=== PATIENT | female | born 1955 | race Caucasian/White ===

== ENCOUNTER 2019-12-22 10:03 | Outpatient (CLI) | payer BC, OTHER ==
--- NOTE | 2019-12-30 10:54 | Mammography Report ---
BILATERAL DIGITAL SCREENING MAMMOGRAM 3D/2D: 12/22/2019 CLINICAL: Routine screening. Routine screening. No prior exams were available for comparison. There are scattered fibroglandular elements in both breasts. There is possible architectural distortion in the right breast anterior depth medial region seen on t he craniocaudal view only. There also is a mass with an obscured and circumscribed margin in the right breast central to the nip ple anterior depth. No other significant masses, calcifications, or other findings are seen in either breast. IMPRESSION: INCOMPLETE: NEEDS ADDITIONAL IMAGING EVALUATION 1) The possible architectural distortion in the right breast anterior depth medial region seen on the craniocaudal view only is indeterminate. Additional views with possible ultrasound are recommended. 2) The mass in the right breast central to the nipple anterior depth resembles a cyst and is indeterm inate. Additional views with possible ultrasound are recommended. This exam was interpreted at Station ID: [id number]. NOTE: For mammograms, a report in lay terms will be sent to the patient. Approximately 15% of breast malignancies will not be visualized mammographically. In the management of a palpable breast mass, a negative mammogram must not discourage biopsy of a clinically suspicious lesion. Electronically Signed By: Ryley Oconnor M.D. slc/:12/30/2019 08:52:18 ACR BI-RADS Category 0: Incomplete 3340F PARENCHYMAL PATTERN: (A) - The breast(s) demonstrate(s) scattered fibroglandular densities. BI-RADS CATEGORY: (0) - 0 Mammo and [place] [id number] Immediate follow-up LATERALITY: (B)
== END 2019-12-22 10:04 | disposition home or self-care (01) ==
LOC: DI 10:03
DX: Z12.31 Encounter for screening mammogram for malignant neoplasm of breast (principal); N63.0 Unspecified lump in unspecified breast
CPT/HCPCS: 77063; 77067

== ENCOUNTER 2020-02-01 09:23 | Outpatient (CLI) | payer BC ==
--- NOTE | 2020-02-02 09:34 | Ultrasound Report ---
LIMITED ULTRASOUND OF RIGHT BREAST: 02/01/2020 CLINICAL: Patient returns for additional imaging over a suspected mass in the right breast. Comparison is made to exams dated: 02/01/2020 mammogram, 12/22/2019 mammogram - [facility], 10/07/2018 mammogram, 06/21/2016 mammogram, 02/10/2015 mammogram, and 12/30/2013 mammogram - [facility]. Color flow and real-time ultrasound of the right breast 7 o'clock, and retroareolar regions were perf ormed. Donovan scale images of the real-time examination were reviewed. There is a benign 0.6 cm x 0.6 cm x 0.5 cm round cyst in the right breast at 7 o'clock in the retroar eolar region 1 cm from the nipple. This round cyst is anechoic with posterior acoustic enhancement. Color flow imaging demonstrates that there is no vascularity present. Adjacent simple cyst measuring 0.2 cm. IMPRESSION: BENIGN There is no sonographic evidence of malignancy. The 0.6 cm round cyst in the right breast is consistent with a simple cyst and is benign. A 1 year screening mammogram is recommended. Exam findings conveyed to the patient. This exam was interpreted at Station ID: [id number]. Electronically Signed By: Ryley Oconnor M.D. slc/:02/01/2020 11:05:01 Ultrasound BI-RADS: 2 Benign BI-RADS CATEGORY: (2) - 2 RECOMMENDATION: (ANNUAL) - Recommend routine annual screening mammography. [id number] 1 year screening LATERALITY: (B)
--- NOTE | 2020-02-02 09:34 | Mammography Report ---
UNILATERAL RIGHT DIGITAL DIAGNOSTIC MAMMOGRAM 3D/2D: 02/01/2020 CLINICAL: Patient returns today to evaluate a density in the right breast. Comparison is made to exams dated: 12/22/2019 mammogram - [facility], 10/07/2018 mamm ogram, 06/21/2016 mammogram, 02/10/2015 mammogram, and 12/30/2013 mammogram - [facility]. There are scattered fibroglandular elements in right breast. There is a 0.6 cm mass with an obscured and circumscribed margin in the right breast central to the n ipple anterior depth. There also is a possible benign architectural distortion in the right breast anterior depth medial re gion seen on the craniocaudal view only. This is not seen in additional views. No other significant masses or calcifications are seen in the breast. IMPRESSION: INCOMPLETE: NEEDS ADDITIONAL IMAGING EVALUATION 1) The 0.6 cm mass in the right breast central to the nipple anterior depth resembles a cyst and is i ndeterminate. -A targeted ultrasound is recommended and will immediately follow. 2) Possible architectural distortion in the medial breast does not persist on additional views and is consistent with overlapping fibroglandular tissue and is benign. This exam was interpreted at Station ID: [id number]. NOTE: For mammograms, a report in lay terms will be sent to the patient. Approximately 15% of breast malignancies will not be visualized mammographically. In the management of a palpable breast mass, a negative mammogram must not discourage biopsy of a clinically suspicious lesion. Electronically Signed By: Ryley Oconnor M.D. slc/:02/01/2020 11:02:17 ACR BI-RADS Category 0: Incomplete 3340F PARENCHYMAL PATTERN: (A) - The breast(s) demonstrate(s) scattered fibroglandular densities. BI-RADS CATEGORY: (0) - 0 Ultrasound [id number] Immediate follow-up LATERALITY: (B)
== END 2020-02-01 09:24 | disposition home or self-care (01) ==
LOC: DI 09:23
PROVIDERS: ATTEND Family Medicine
DX: N60.01 Solitary cyst of right breast (principal)
CPT/HCPCS: 76642

== ENCOUNTER 2020-02-18 01:52 | Inpatient (IN) | payer BC ==
--- NOTE | 2020-02-18 02:18 | ED Physician Documentation ---
PD HPI ABD PAIN - Stated complaint Stated Complaint: ABD PX - Chief complaint Chief Complaint: Abd Pain - History obtained from History obtained from: Patient - History of Present Illness Timing - onset: Enter time (23:30), Today Timing - details: Abrupt onset Pain level max: 10 Pain level now: 10 Quality: Pain Location: All over / everywhere (predominantly RLQ) Radiation: Other (no radiation) Improved by: Other (no ameliorating factors) Worsened by: Other (no exacerbating factors) Associated symptoms: Nausea. No: Fever, Vomiting, Diarrhea, Constipation Recently seen: Not recently seen - Additional information Additional information: patient went to sleep approximately 9 PM in NAD, woke at approximately 11:30 PM with abdominal pain, diffuse but most pronounced in RLQ. Nausea but no vomiting. Denies h/o similar symptoms. Review of Systems Constitutional: reports: Reviewed and negative Eyes: reports: Reviewed and negative Ears: reports: Reviewed and negative Nose: reports: Reviewed and negative Throat: reports: Reviewed and negative Cardiac: reports: Reviewed and negative Respiratory: reports: Reviewed and negative GI: reports: Abdominal Pain, Nausea. denies: Vomiting, Constipation, Diarrhea : denies: Dysuria, Frequency Skin: denies: Rash Musculoskeletal: reports: Reviewed and negative Neurologic: reports: Reviewed and negative PD PAST MEDICAL HISTORY - Past Medical History Past Medical History: Yes Cardiovascular: High cholesterol - Past Surgical History Past Surgical History: Yes /[employer]: Other (patient says she had surgery to address ovarian cyst: this was approximately 40 years ago, cannot recall which side was involved) - Present Medications Home Medications: Ambulatory Orders Medication Instructions Recorded Confirmed Simvastatin 10 mg PO DAILY 02/18/20 02/18/20 - Allergies Allergies/Adverse Reactions: Allergies Allergy/AdvReac Type Severity Reaction Status Date / Time No Known Drug Allergies Allergy Verified 02/18/20 02:25 - Living Situation Living Arrangement: reports: At home - Social History Does the pt smoke?: No PD ED PE NORMAL - Vitals Vital signs reviewed: Yes - General General: Alert and oriented X 3, Well developed/nourished, Other (obvious painful discomfort) - HEENT HEENT: Moist mucous membranes - Neck Neck: Supple, no meningeal sign - Cardiac Cardiac: RRR, No murmur, No gallop, No rub - Respiratory Respiratory: No respiratory distress, Clear bilaterally - Abdomen Abdomen: Normal bowel sounds, Soft, Non distended - Back Back: No CVA TTP - Derm Derm: Normal color, Warm and dry, No rash - Extremities Extremities: No edema PD ED PE EXPANDED - Abdomen Abdomen: Tender to palpation (across lower abdomen, most pronounced in RLQ;). No: Rebound Results - Vitals Vitals: Vital Signs - 24 hr 02/18/20 02/18/20 02/18/20 01:55 04:00 05:15 Temperature 36.5 C Heart Rate 62 63 62 Respiratory 20 14 16 Rate Blood Pressure 163/87 H 129/72 169/85 H O2 Saturation 100 100 96 Oxygen O2 Source Room air - Labs Labs: Laboratory Tests 02/18/20 02/18/20 02/18/20 02:10 02:10 02:12 WBC 6.8 RBC 4.23 Hgb 12.6 Hct 39.6 MCV 93.6 MCH 29.8 MCHC 31.8 L RDW 12.9 Plt Count 241 MPV 9.6 Neut # (Auto) 4.7 Lymph # (Auto) 1.5 [place] # (Auto) 0.4 Eos # (Auto) 0.0 Baso # (Auto) 0.0 Absolute Nucleated RBC 0.00 Nucleated RBC % 0.0 Sodium 138 Potassium 3.6 Chloride 103 Carbon Dioxide 27 Anion Gap 8.0 BUN 15 Creatinine 0.8 Estimated GFR (MDRD) 73 L Glucose 133 H Calcium 8.9 Total Bilirubin 0.5 AST 21 ALT 20 Alkaline Phosphatase 50 Total Protein 6.9 Albumin 4.1 Globulin 2.8 Albumin/Globulin Ratio 1.5 Lipase 29 Urine Color YELLOW Urine Clarity HAZY Urine pH 6.0 Ur Specific [place] 1.025 Urine Protein NEGATIVE Urine Glucose (UA) NEGATIVE Urine Ketones TRACE Urine Occult Blood SMALL H Urine Nitrite NEGATIVE Urine Bilirubin NEGATIVE Urine Urobilinogen 0.2 (NORMAL) Ur Leukocyte Esterase NEGATIVE Urine RBC 6-10 H Urine WBC 0-3 Ur Squamous Epith Cells MANY Squamous H Urine Bacteria Moderate H Ur Microscopic Review INDICATED Urine Culture Comments NOT INDICATED - Rads (name of study) CT A/P Radiology: Prelim report reviewed, See rad report CXR Radiology: Prelim report reviewed, See rad report PD MEDICAL DECISION MAKING - ED course Complexity details: reviewed results, re-evaluated patient, considered differential, d/w patient ED course: patient had adequate symptom relief with 1mg IV dilaudid and 4mg IV zofran. Also given [address] demonstrates SBO. Her symptoms gradually returned, and she was given repeat doses of dilaudid and zofran. She had vomiting subsequent to the second dose of zofran. D/W Dr. Greco, recommends NGT placement and he will admit to [facility]. Departure - Departure Disposition: [facility] DC/Tae Clinical Impression: Small bowel obstruction Condition: Stable Discharge Date/Time: 02/18/20 07:08
[2020-02-18 02:24] LABS: BASOPHILS % (AUTO) 0.4 %; EOSINOPHILS % (AUTO) 0.4 %; HGB - HEMOGLOBIN 12.6 g/dL (12.0-16.0); LYMPHOCYTES # (AUTO) 1.5 10^3/uL (1.5-3.5); LYMPHOCYTES % (AUTO) 22.7 %; MEAN CORPUSCULAR HEMOGLOBIN 29.8 pg (27.0-31.0); MEAN CORPUSCULAR HGB CONC 31.8 g/dL (32.0-36.0); MEAN CORPUSCULAR VOLUME 93.6 fL (81.0-99.0); MEAN PLATELET VOLUME 9.6 fL (7.9-10.8); MONOCYTES # (AUTO) 0.4 10^3/uL (0.0-1.0); MONOCYTES % (AUTO) 6.1 %; NEUTROPHILS # (AUTO) 4.7 10^3/uL (1.5-6.6); NEUTROPHILS % (AUTO) 70.1 %; PLT - PLATELET COUNT 241 10^3/uL (130-450); RED BLOOD COUNT 4.23 10^6/uL (4.20-5.40); RED CELL DISTRIBUTION WIDTH 12.9 % (12.0-15.0); WHITE BLOOD COUNT 6.8 x10^3/uL (4.8-10.8)
[2020-02-18] MEDS ORDERED: SODIUM CHLORIDE 0.9% 1,000 ML IV STA ×2 (02:32→05:10)
[2020-02-18] MEDS ORDERED: HYDROmorphone 1 MG/ML CARPUJECT IVP STA ×2 (02:32→05:10)
[2020-02-18] MEDS ORDERED: ONDANSETRON 4 MG/2 ML VIAL IVP STA ×2 (02:32→04:57)
[2020-02-18 02:33] LABS: ALBUMIN 4.1 g/dL (3.2-5.5); ALBUMIN/GLOBULIN RATIO 1.5 (1.0-2.2); BILIRUBIN,TOTAL 0.5 mg/dL (0.2-1.0); CALCIUM 8.9 mg/dL (8.5-10.3); CREATININE 0.8 mg/dL (0.4-1.0); TOTAL PROTEIN 6.9 g/dL (6.7-8.2)
[2020-02-18 02:33] LABS: BILIRUBIN,URINE NEGATIVE (NEGATIVE); GLUCOSE, URINE (UA) NEGATIVE (NEGATIVE); KETONES,URINE (UA) TRACE mg/dL (NEGATIVE); LEUKOCYTE ESTERASE, URINE NEGATIVE (NEGATIVE); NITRITE,URINE NEGATIVE (NEGATIVE); OCCULT BLOOD,URINE SMALL (NEGATIVE); PROTEIN,URINE NEGATIVE (NEGATIVE); UROBILINOGEN,URINE 0.2 (NORMAL) E.U./dL (NORMAL)
[2020-02-18 02:35] LABS: CLARITY,URINE HAZY (CLEAR)
[2020-02-18 02:36] LABS: BACTERIA,URINE Moderate /HPF (None Seen); SQUAMOUS EPITHELIAL CELL,UR MANY Squamous (<= Few)
[2020-02-18] MEDS ORDERED: IOVERSOL 320 100 ML VIAL IVP ONE ×2 (02:47→03:15)
[2020-02-18] MEDS ORDERED: PROMETHAZINE INJ 25 MG in SODIUM CHLORIDE 0.9% 50 ML IV STA (06:24)
[2020-02-18] MEDS ORDERED: PROMETHAZINE 25 MG/1 ML VIAL ONE (06:33)
[2020-02-18] MEDS ORDERED: ACETAMINOPHEN 1,000 MG/100 ML 100 ML IV SCH (07:00)
[2020-02-18] MEDS: PANTOPRAZOLE 40 MG VIAL IVP SCH (07:27)
--- NOTE | 2020-02-18 08:05 | CT Report ---
PROCEDURE: Abdomen/Pelvis W INDICATIONS: abd. pain CONTRAST: IV CONTRAST: Optiray 320 ml: 100 PO CONTRAST: *NO PO CONTRAST TECHNIQUE: After the administration of oral and intravenous contrast, 5 mm thick sections acquired from the diap hragms to the symphysis. 5 mm thick coronal and sagittal reformats were acquired. For radiation dos e reduction, the following was used: automated exposure control, adjustment of mA and/or kV accordin g to patient size. COMPARISON: None. FINDINGS: Image quality: Excellent. ABDOMEN: Lung bases: Lung bases are clear. Heart size is normal. Solid organs: Liver and spleen are normal in size and enhancement. Gallbladder Biliary system is non dilated. Pancreas enhances normally. No adrenal nodules. Kidneys demonstrate normal size an d enhancement, without hydronephrosis. Peritoneum and bowel: There is a early or mild distal small bowel obstruction noted involving the ile um with associated mesenteric edema and a small amount of free pelvic fluid. There is dilatation of s mall bowel loops only to approximately 2.6 cm. The proximal small bowel is normal in appearance. Nodes and vessels: No retroperitoneal or mesenteric adenopathy by size criteria. Aorta and inferior vena cava are normal in size. Miscellaneous: No ventral hernias. PELVIS: Genitourinary: Bladder wall thickness is normal. Miscellaneous: No inguinal hernias or adenopathy. Probable mildly enlarged right ovary measuring ap proximately 4.6 cm. Bones: No suspicious bony lesions. No vertebral body compression fractures. IMPRESSION: 1. Findings consistent with early or partial distal small bowel obstruction with mesenteric edema and a small amount of free fluid. 2. Prominent, nonspecific right ovary. A preliminary report with the above findings was provided at the time of the study by [facility] [employer] [facility]. Reviewed by: Chris Mann MD on 02/18/2020 8:04 AM PDT Approved by: Chris Mann MD on 02/18/2020 8:04 AM PDT Station ID: [id number]
--- NOTE | 2020-02-18 08:15 | XRAY Report ---
PROCEDURE: Chest 1 View X-Ray INDICATIONS: NGT placement confirmation TECHNIQUE: One view of the chest was acquired. COMPARISON: None FINDINGS: Surgical changes and devices: NG tube projects across the GE junction with tip in side port in the pr oximal stomach.. Lungs and pleura: No pleural effusions or pneumothorax. Lungs are clear. Mediastinum: Mediastinal contours appear normal. Heart size is normal. Bones and chest wall: No suspicious bony lesions. Overlying soft tissues appear unremarkable. IMPRESSION: NG tube projects into the proximal stomach. Reviewed by: Tammi Bonner MD, PhD on 02/18/2020 8:13 AM PDT Approved by: Tammi Bonner MD, PhD on 02/18/2020 8:13 AM PDT Station ID: [id number]
--- NOTE | 2020-02-18 08:19 | XRAY Report ---
PROCEDURE: Abdomen 1 View X-Ray INDICATIONS: sbo follow up TECHNIQUE: 1 view of the abdomen were acquired. COMPARISON: CT abdomen and pelvis 02/18/2020 at 0302 hours. FINDINGS: Surgical changes and devices: None. Bowel: No pneumoperitoneum. There is a paucity of gas in loops of small bowel. Mildly dilated loop o f small bowel noted in the mid-upper abdomen that measures 4 cm. Scattered air-fluid levels noted. So ft tissues: Contrast material noted in the urinary bladder and genitourinary collecting systems rela linsey to recent CT scan. No masses; visualized solid organ contours appear normal in size. No suspicio us abdominal calcifications. Bones: No suspicious bony abnormalities. IMPRESSION: Small bowel obstruction not significant changed compared to 02/18/2020 at 0302 hours. Reviewed by: Tammi Bonner MD, PhD on 02/18/2020 8:18 AM PDT Approved by: Tammi Bonner MD, PhD on 02/18/2020 8:18 AM PDT Station ID: [id number]
[2020-02-18] MEDS ORDERED: ENOXAPARIN 40 MG/0.4 ML SYRINGE SUBQ SCH (09:00)
[2020-02-18] MEDS: D5NS W/20 MEQ KCL 1,000 ML IV SCH ×2 (09:25→17:26)
[2020-02-18] MEDS: METOCLOPRAMIDE 10 MG/2 ML VIAL IVP SCH ×3 (09:29→17:27)
[2020-02-18] MEDS: SODIUM CHLORIDE FLUSH 0.9% 10 ML SYRINGE IVP SCH ×2 (09:29→16:06)
--- NOTE | 2020-02-18 11:39 | PHARMACY PROGRESS NOTE ---
- Best Possible Medication History Admit Date and Time: 02/18/20 0618 Processed by: Pharmacy Medication History completed: Yes Patient Interview: Completed Secondary Source(s): Pharmacy records (PATIENT INTERVIEWED BY BARREL COOPER. PATIENT ABLE TO CONFIRM MEDICATIONS ), Insurance records As the person ultimately responsible for medication therapy, providers are able to order a medication from an existing home medication list in [facility] via the "Reconcile Routine" prior to Confirmation of that medication by program support assistant. Such practice is discouraged except when the physician, in their clinical judgment, deems that a medical need exists for a medication without regard to previous use.
[2020-02-18] MEDS: HYDROmorphone 0.5 MG/0.5 ML SYRINGE IVP PRN ×2 (13:26→20:15)
--- NOTE | 2020-02-18 15:06 | HISTORY & PHYSICAL EXAMINATION ---
Chief Complaint - Chief Complaint Chief Complaint: Nausea vomiting abdominal pain Abdominal Pain HPI - Admitted From Admitted from: ED - History Obtained From Records Reviewed: RN notes reviewed History obtained from: Patient Exam limitations: No limitations - History of Present Illness Severity at the worst: Mild Pain Quality: Aching, Cramping Context-Pain started w/: Rest Timing: Abrupt onset HPI Comment/Other: 64-year-old female with history of open ovarian cystectomy several decades before with no interval abdominal surgical procedures who presents with nausea vomiting and abdominal pain. Patient evaluated through ER with evident small bowel obstruction on CT and surgical consultation was obtained. No prior upper endoscopy. Patient reports last colonoscopy was 5 years ago. No significant past medical history. PMH/PSH - Past Medical History Cardiovascular: positive: High cholesterol - Past Surgical History /RN PALLIATIVE CARE: positive: Other (patient says she had surgery to address ovarian cyst: this was approximately 40 years ago, cannot recall which side was involved) Social & Family Hx - Social History Does the pt smoke?: No Smoking Status: Never smoker Meds/Allgy - Home Medications Home Medications: Ambulatory Orders Medication Instructions Recorded Confirmed Progesterone, Micronized 100 mg PO DAILY 02/18/20 02/18/20 [Progesterone] Rosuvastatin Calcium 20 mg PO DAILY 02/18/20 02/18/20 estradioL [Estrace] 1 mg PO DAILY 02/18/20 02/18/20 - Allergies Allergies/Adverse Reactions: Allergies Allergy/AdvReac Type Severity Reaction Status Date / Time No Known Drug Allergies Allergy Verified 02/18/20 02:25 Review of Systems - Constitutional Constitutional: reports: Weakness - Cardiovascular Cariovascular: denies: Palpitations, Chest pain - Respiratory Respiratory: denies: Cough, Sputum production - Gastrointestinal Gastrointestinal: reports: Abdominal pain, Nausea, Vomiting Exam - Vital Signs Vital Signs: Vital Signs x48h Temp Pulse Resp BP Pulse Ox 02/18/20 07:10 36.9 C 55 L 16 168/69 H 98 - Physical Exam General Appearance: positive: No acute distress, Alert Eyes Bilateral: positive: Normal inspection, PERRL, EOMI ENT: positive: ENT inspection nml, Pharynx nml, No signs of dehydration Neck: positive: Nml inspection Respiratory: positive: Chest non-tender, No respiratory distress, Breath sounds nml. negative: Wheezes, Rales, Rhonchi Cardiovascular: positive: Regular rate & rhythm Abdomen: positive: Nml bowel sounds, No distention, Tenderness. negative: Guarding, Rebound Extremities: positive: Non-tender Neurologic/Psychiatric: positive: Oriented x3, CN's nml (2-12), Motor nml Results - Lab Results Fish Bones: 02/19/20 05:20 02/19/20 05:20 Other Lab Results: Lab Results x24hrs 02/18/20 02/18/20 02/18/20 Range/Units 02:12 02:10 02:10 WBC 6.8 (4.8-10.8) x10^3/uL RBC 4.23 (4.20-5.40) 10^6/uL Hgb 12.6 (12.0-16.0) g/dL Hct 39.6 (37.0-47.0) % MCV 93.6 (81.0-99.0) fL MCH 29.8 (27.0-31.0) pg MCHC 31.8 L (32.0-36.0) g/dL RDW 12.9 (12.0-15.0) % Plt Count 241 (130-450) 10^3/uL MPV 9.6 (7.9-10.8) fL Neut # (Auto) 4.7 (1.5-6.6) 10^3/uL Lymph # (Auto) 1.5 (1.5-3.5) 10^3/uL Douglas # (Auto) 0.4 (0.0-1.0) 10^3/uL Eos # (Auto) 0.0 (0.0-0.7) 10^3/uL Baso # (Auto) 0.0 (0.0-0.1) 10^3/uL Absolute Nucleated RBC 0.00 x10^3/uL Nucleated RBC % 0.0 /100WBC Sodium 138 (135-145) mmol/L Potassium 3.6 (3.5-5.0) mmol/L Chloride 103 (101-111) mmol/L Carbon Dioxide 27 (21-32) mmol/L Anion Gap 8.0 (6-13) BUN 15 (6-20) mg/dL Creatinine 0.8 (0.4-1.0) mg/dL Estimated GFR (MDRD) 73 L (>89) Glucose 133 H (70-100) mg/dL Calcium 8.9 (8.5-10.3) mg/dL Total Bilirubin 0.5 (0.2-1.0) mg/dL AST 21 (10-42) IU/L ALT 20 (10-60) IU/L Alkaline Phosphatase 50 (42-121) IU/L Total Protein 6.9 (6.7-8.2) g/dL Albumin 4.1 (3.2-5.5) g/dL Globulin 2.8 (2.1-4.2) g/dL Albumin/Globulin Ratio 1.5 (1.0-2.2) Lipase 29 (22-51) U/L Urine Color YELLOW Urine Clarity HAZY (CLEAR) Urine pH 6.0 (5.0-7.5) PH Ur Specific [place] 1.025 (1.002-1.030) Urine Protein NEGATIVE (NEGATIVE) mg/dL Urine Glucose (UA) NEGATIVE (NEGATIVE) mg/dL Urine Ketones TRACE (NEGATIVE) mg/dL Urine Occult Blood SMALL H (NEGATIVE) Urine Nitrite NEGATIVE (NEGATIVE) Urine Bilirubin NEGATIVE (NEGATIVE) Urine Urobilinogen 0.2 (NORMAL) (NORMAL) E.U./dL Ur Leukocyte Esterase NEGATIVE (NEGATIVE) Urine RBC 6-10 H (0-5) /HPF Urine WBC 0-3 (0-5) /HPF Ur Squamous Epith Cells MANY Squamous H (<= Few) Urine Bacteria Moderate H (None Seen) /HPF Ur Microscopic Review INDICATED Urine Culture Comments NOT INDICATED Impression/Plan - Problem List Problem List: 64-year-old female presenting with abdominal pain nausea vomiting, and CT concerning for early partial small bowel obstruction with no significant past medical history. Admission problems are as follows: 1. Bowel obstruction, small 2. Abdominal pain 3. Prior abdominal surgery, remote open ovarian cystectomy 64-year-old female with history of exploratory laparotomy, secondary to ovarian cyst. She presents with early partial small bowel obstruction with associated obstipation. No peritoneal signs at this time. Plan as follows: 1. bowel rest, nasogastric decompression, IV fluid resuscitation. Clamping trials as tolerated. 2. Serial abdominal exams, plain film imaging, possible repeat imaging with CT and contrast challenge. 3. May need operative intervention if fails conservative management. Will follow closely. 4. Electrolytes normal at this time we will continue to monitor them with daily lab draws.
[2020-02-18] MEDS: ACETAMINOPHEN 1,000 MG/100 ML 100 ML IV SCH ×2 (16:05→17:26)
[2020-02-18] MEDS: SODIUM CHLORIDE FLUSH 0.9% 10 ML SYRINGE IVP PRN (17:27)
[2020-02-19] MEDS: ACETAMINOPHEN 1,000 MG/100 ML 100 ML IV SCH (00:32)
[2020-02-19] MEDS: METOCLOPRAMIDE 10 MG/2 ML VIAL IVP SCH ×2 (00:32→06:12)
[2020-02-19] MEDS: SODIUM CHLORIDE FLUSH 0.9% 10 ML SYRINGE IVP SCH (00:33)
[2020-02-19] MEDS: D5NS W/20 MEQ KCL 1,000 ML IV SCH (01:48)
[2020-02-19 05:34] LABS: BASOPHILS % (AUTO) 0.3 %; EOSINOPHILS % (AUTO) 0.2 %; HGB - HEMOGLOBIN 11.5 g/dL (12.0-16.0); LYMPHOCYTES # (AUTO) 1.4 10^3/uL (1.5-3.5); LYMPHOCYTES % (AUTO) 21.5 %; MEAN CORPUSCULAR HEMOGLOBIN 30.9 pg (27.0-31.0); MEAN CORPUSCULAR HGB CONC 32.7 g/dL (32.0-36.0); MEAN CORPUSCULAR VOLUME 94.6 fL (81.0-99.0); MEAN PLATELET VOLUME 9.5 fL (7.9-10.8); MONOCYTES # (AUTO) 0.5 10^3/uL (0.0-1.0); NEUTROPHILS # (AUTO) 4.6 10^3/uL (1.5-6.6); NEUTROPHILS % (AUTO) 69.7 %; PLT - PLATELET COUNT 206 10^3/uL (130-450); RED BLOOD COUNT 3.72 10^6/uL (4.20-5.40); RED CELL DISTRIBUTION WIDTH 13.3 % (12.0-15.0); WHITE BLOOD COUNT 6.6 x10^3/uL (4.8-10.8)
[2020-02-19 05:46] LABS: ALBUMIN 3.2 g/dL (3.2-5.5); ALBUMIN/GLOBULIN RATIO 1.4 (1.0-2.2); BILIRUBIN,TOTAL 0.4 mg/dL (0.2-1.0); CALCIUM 8.5 mg/dL (8.5-10.3); CREATININE 0.6 mg/dL (0.4-1.0); TOTAL PROTEIN 5.5 g/dL (6.7-8.2)
[2020-02-19] MEDS: PANTOPRAZOLE 40 MG VIAL IVP SCH (06:11)
[2020-02-19] MEDS: SODIUM CHLORIDE FLUSH 0.9% 10 ML SYRINGE IVP PRN (06:12)
[2020-02-19 09:02] VITALS: BP 132/68
--- NOTE | 2020-02-19 14:29 | Discharge Plan ---
Discharge Plan Problem Reviewed?: Yes Disposition: Home, Self Care Condition: Good Prescriptions: polyethylene glycoL 3350 [Miralax] 17 gm PO DAILY #30 packet Pantoprazole [Protonix] 40 mg PO DAILY #30 tablet Metoclopramide [Reglan] 10 mg PO Q6H PRN #30 tablet PRN Reason: Nausea / Vomiting Ondansetron HCl [Zofran] 4 mg PO Q6H PRN #30 tab PRN Reason: Nausea / Vomiting Diet: Soft Activity Restrictions: No Restrictions Shower Restrictions: No Driving Restrictions: No Instruction Topics: Obstruction Sm Bowel Plan of Treatment: [place] diet Bowel regimen Call for fevers/nausea/vomiting No Smoking: If you smoke, Please STOP! Call for help. Follow-up with: Rod Valadez MD [Primary Care Provider] -
--- NOTE | 2020-02-19 14:37 | DISCHARGE SUMMARY ---
Discharge Summary Admit Date: 02/18/20 Discharge Date: 02/19/20 Discharging Provider: Fannie Code Status: Attempt Resuscitation Condition at Discharge: Good Discharge Disposition: 01 Home, Self Care - DIAGNOSES Admission Diagnoses: 1. History of prior laparotomy 2. Small bowel obstruction 3. Obesity Discharge Diagnoses with Status of Each Condition: 1. History of prior laparotomy 2. Small bowel obstruction - RESOLVED 3. Obesity - HPI History of Present Illness: 64-year-old female with history of open ovarian cystectomy several decades before with no interval abdominal surgical procedures who presents with nausea vomiting and abdominal pain. Patient evaluated through ER with evident small bowel obstruction on CT and surgical consultation was obtained. No prior upper endoscopy. Patient reports last colonoscopy was 5 years ago. No significant past medical history. - HOSPITAL COURSE Hospital Course: 64-year-old female presenting with abdominal pain nausea vomiting, and CT concerning for early partial small bowel obstruction with no significant past medical history. Admission problems are as follows: 1. Bowel obstruction, small 2. Abdominal pain 3. Prior abdominal surgery, remote open ovarian cystectomy 64-year-old female with history of exploratory laparotomy, secondary to ovarian cyst. She presents with early partial small bowel obstruction with associated obstipation. No peritoneal signs at this time. Plan as follows: 1. bowel rest, nasogastric decompression, IV fluid resuscitation. Clamping trials as tolerated. 2. Serial abdominal exams, plain film imaging, possible repeat imaging with CT and contrast challenge. 3. May need operative intervention if fails conservative management. Will follow closely. 4. Electrolytes normal at this time we will continue to monitor them with daily lab draws. History of prior laparotomy. Presents with small bowel obstruction. NG tube clamp trial with minimal residual, along with positive resumption of bowel function. Denied nausea denied vomiting. Was advanced for diet without any complication. Discharge instructions given. Patient plan for follow-up. Bowel regimen advised. Low residue diet counseled. Antiemetics offered as needed given the patient is planning a move. Counseled for repeat current nausea/vomiting/abdominal pain to proceed to ER for further management. - ALLERGIES Allergies/Adverse Reactions: Allergies Allergy/AdvReac Type Severity Reaction Status Date / Time No Known Drug Allergies Allergy Verified 02/18/20 02:25 - MEDICATIONS Home Medications: Ambulatory Orders Medication Instructions Recorded Confirmed Progesterone, Micronized 100 mg PO DAILY 02/18/20 02/18/20 [Progesterone] Rosuvastatin Calcium 20 mg PO DAILY 02/18/20 02/18/20 estradioL [Estrace] 1 mg PO DAILY 02/18/20 02/18/20 Metoclopramide [Reglan] 10 mg PO Q6H PRN #30 tablet 02/19/20 Ondansetron HCl [Zofran] 4 mg PO Q6H PRN #30 tab 02/19/20 Pantoprazole [Protonix] 40 mg PO DAILY #30 tablet 02/19/20 polyethylene glycoL 3350 [Miralax] 17 gm PO DAILY #30 packet 02/19/20 - PHYSICAL EXAM AT DISCHARGE General Appearance: positive: No acute distress Eyes Bilateral: positive: Normal inspection, PERRL, EOMI Neck: positive: Nml inspection Respiratory: positive: Chest non-tender, No respiratory distress, Breath sounds nml. negative: Wheezes, Rales, Rhonchi Cardiovascular: positive: Regular rate & rhythm Abdomen: positive: Non-tender, No distention. negative: Guarding, Rebound Skin: positive: Color nml Extremities: positive: Non-tender, Full ROM, Nml appearance Neurologic/Psychiatric: positive: Oriented x3, CN's nml (2-12), Motor nml, Sensation nml, Mood/affect nml - LABS Result Diagrams: 02/19/20 05:20 02/19/20 05:20 - SEPSIS Current Stage of Sepsis: Resolved
== END 2020-02-19 15:01 | disposition home or self-care (01) | DRG 390 ==
LOC: ED 01:52 → MS2 06:18
PROVIDERS: ADMIT Surgery; ATTEND Surgery
DX: K91.31 Postprocedural partial intestinal obstruction (principal); E66.9 Obesity, unspecified; Z68.30 Body mass index [BMI] 30.0-30.9, adult; E78.00 Pure hypercholesterolemia, unspecified; Z87.42 Personal history of other diseases of the female genital tract
CPT/HCPCS: 36415; 71045; 74018; 74177; 80053; 81001; 83690; 85025; 96361; 96374; 96375; 96376; 99285; J0131; J1170; J1650; J2765; J7040; Q9967; 81003; 87086